=== PATIENT | female | born 1950 | race Caucasian/White ===

== ENCOUNTER → 2017-09-25 | Outpatient (CLI) | payer BC ==
[~2017-09-25] MED LIST: CYC10 PO; CYCL-332 PO; CYCL10TA29 PO; D-ALLERGY PO; GABA-549 PO; GUAI1CAP PO; IBU200 PO; LOR5 PO; LOR5/325 PO; MET4 PO; METH4TAB66 PO; OXYC-856 PO; PER PO; TRAM-420 PO; TRAZ150T8 PO; ZOLP-350 PO
--- NOTE | 2017-09-25 13:54 | RADIOLOGY IMAGING REPORT ---
FACILITY: [facility] - [place] PATIENT NAME: Karen Ordonez : 1950 MR: [id number] V: [id number] EXAM DATE: ORDERING PHYSICIAN: LILLIE SON TECHNOLOGIST: Location: [facility] - [place] Patient: Karen Ordonez : 1950 Visit/Account:[id number] Date of Sevice: 09/25/2017 ANKLE 3 VIEW MIN LEFT History: Left ankle. Comparison study: None. Findings: There is no fracture or dislocation involving the left ankle. The ankle mortise is intact. There are mild findings of an these adenopathy at the site of attachment of the Achilles tendon and p lantar aponeurosis upon the calcaneus. IMPRESSION: 1. No fracture involving the left ankle. 2. Enthesopathic changes as described above. Report Dictated By: Britton Yoo MD at 09/25/2017 1:50 PM Report E-Signed By: Britton Yoo MD at 09/25/2017 1:51 PM WSN:[id number]
== END ==
LOC: LAB 13:05
PROVIDERS: ATTEND Nurse Practitioner Psychiatric/Mental Health
DX: M25.572 Pain in left ankle and joints of left foot (principal); M25.472 Effusion, left ankle; W19.XXXA Unspecified fall, initial encounter